=== PATIENT | male | born 1955 | race Two or more races ===

== ENCOUNTER 2024-11-18 09:58 | Emergency (ER) | payer MEDICARE, BC, MEDICAID, SELFPAY ==
[2024-11-18 10:10] VITALS: BP 126/55; PULSE 75; RESP 18; TEMP 37.9; O2SAT 97
--- NOTE | 2024-11-18 10:11 | XR_ITS ---
Examination: PA lateral chest 2 views TECHNIQUE: Upright PA lateral chest 2 views Exam date and time: November 18, 2024 1027 hours Comparison March 14, 2024 INDICATIONS: Fever this morning FINDINGS: Mild basilar bronchitis pattern. Normal heart size No lobar pneumonia IMPRESSION: Mild basilar bronchitis pattern
--- NOTE | 2024-11-18 10:12 | PD.EDRME ---
Rapid Medical Screening Exam [facility] Arrival date/time: 11/18/24 09:58 69-year-old male with kidney transplant 4 months ago presents to the emergency department today for complaints of chills and fever which began last night Chief Complaint: Fever Vital signs: Vital Signs Temperature 100.2 F 11/18/24 10:10 Pulse Rate 75 11/18/24 10:10 Respiratory Rate 18 11/18/24 10:10 Blood Pressure 126/55 L 11/18/24 10:10 Pulse Oximetry (%) 97 11/18/24 10:10 Oxygen Delivery Method Room Air 11/18/24 10:10
[2024-11-18 10:32] LABS: Collection Type, Urine Clean Catch; Squamous Epithelial Cell,Urine 0 /hpf (0-5)
[2024-11-18 10:36] LABS: Bilirubin,Urine Negative (Negative); Blood,Urine Negative (Negative); Clarity,Urine Clear (Clear/Hazy); Color,Urine Lt-Yellow (Lt Yel-Yel); Glucose, Urine 2+ (Negative); Ketones,Urine Negative (Negative); Leukocyte Esterase,Urine Negative (Negative); Nitrite,Urine Negative (Negative); Protein,Urine 2+ (Neg - Trace); RBC,Urine 4 /hpf (0-3); Specific Gravity,Urine 1.017 (1.001-1.035); Urobilinogen,Urine Negative mg/dL (0.0-1.0); WBC,Urine 2 /hpf (0-5)
[2024-11-18 10:42] VITALS: BP 142/66; PULSE 65; RESP 22; TEMP 37.4; O2SAT 97
[2024-11-18 10:56] LABS: Lactate (Lactic Acid) 1.3 mMol/L (0.4-2.0)
[2024-11-18 11:08] LABS: Basophils % (Auto) 3 % (0-2.5); Eosinophils # (Auto) 0.1 Thou/mm3 (0.0-0.5); Eosinophils % (Auto) 4 % (0-10); Hematocrit 37.6 % (41.0-53.0); Hemoglobin 12.7 g/dL (13.5-16.0); Immature Granulocytes % (Auto) 14 % (0-0); Lymphocytes # (Auto) 0.4 Thou/mm3 (1.0-4.8); Lymphocytes % (Auto) 27 % (10-50); Mean Corpuscular HGB Conc 33.8 g/dl (31.0-37.0); Mean Corpuscular Hemoglobin 30.5 pg (25.0-35.0); Mean Corpuscular Volume 90 fL (80-100); Monocytes # (Auto) 0.5 Thou/mm3 (0.0-0.8); Monocytes % (Auto) 37 % (0-12); Neutrophils # (Auto) 0.2 Thou/mm3 (1.8-7.7); Neutrophils % (Auto) 16 % (37-80); Nucleated Red Blood Cell % 0 /100 WBC (0); Platelet Count 201 Thou/mm3 (140-440); RDW Standard Deviation 39.8 fL (35.1-43.9); Red Blood Count 4.16 Miln/mm3 (4.50-5.90)
[2024-11-18 11:15] LABS: White Blood Count 1.4 Thou/mm3 (3.8-10.6)
[2024-11-18 11:29] LABS: Alanine Aminotransferase 16 U/L (10-49); Albumin, Serum 3.8 gm/dL (3.4-4.8); Albumin/Globulin Ratio 1.1 (1.2-2.2); Alkaline Phosphatase 89 U/L (46-116); Anion Gap 7 (7-16); Aspartate Amino Transferase 20 U/L (0-34); BUN/Creatinine Ratio 14 Ratio (12-20); Blood Urea Nitrogen 19 mg/dL (9-23); Calcium 9.1 mg/dL (8.3-10.6); Calcium (Corrected) 9.3 mg/dL (8.5-10.1); Carbon Dioxide 25.3 mMol/L (20.0-31.0); Chloride 99 mMol/L (98-107); Creatinine (Component) 1.4 mg/dL (0.6-1.3); Estimated Creatinine Clearance 1.8 mL/min (>60); Globulin 3.5 gm/dL (2.3-3.5); Glucose 243 mg/dL (74-106); Osmolality,Calculated 272 (275-295); Procalcitonin 0.14 ng/ml (0.0-0.49); Sodium 131 mMol/L (136-145); Total Protein 7.3 gm/dL (5.7-8.2); eGFR 54 See Note
--- NOTE | 2024-11-18 11:50 | XR_ITS ---
Examination: Renal Doppler arterial imaging transplant kidney Exam date and time: November 18, 2024 1332 hours INDICATIONS: Renal transplant July 2024 with fever today TECHNIQUE AND FINDINGS: Multiple grayscale sonographic images transplant kidney Doppler spectral analysis of the transplant kidney including assessment peak systolic flow renal artery calculation resistive indices Transplant kidney 13.3 x 5.8 x 7.1 cm Elevation of peak systolic velocity at the renal artery anastomosis and mid right transplant renal artery Elevated resistive index in the upper and mid kidney Minimal dilatation of the right renal pelvis IMPRESSION: Suspicious for transplant renal artery stenosis Consider MRA without contrast pelvis follow-up
[2024-11-18 12:03] VITALS: BP 142/66; PULSE 62; RESP 21; TEMP 37.3; O2SAT 97
--- NOTE | 2024-11-18 12:38 | PD.EDFEVER ---
ED Fever RME/HPI General Chief Complaint: Fever Stated Complaint: FEVER THIS AM, KIDNEY TRANSPLANT 07/30/24 Arrival date/time: 11/18/24 09:58 RME / HPI RME / HPI Narrative: 11/18/24 09:58 69-year-old male with kidney transplant 4 months ago presents to the emergency department today for complaints of chills and fever which began last night DR. SALAZAR MAIN ED EVALUATION 69 y/o male with Hx of BL kidney failure, Type II DM, and Hypertension and SHx of right kidney transplant BIB daughter presents to ED c/o fever, chills, and weakness x 0200. Patient underwent kidney transplant of the right kidney 4 months ago at [facility] by Dr. Omalley. Patient has a follow-up appointment with Dr. Omalley on 12/02/24. Patient has not yet had an US done, but has weekly bloodwork performed showing that he is sometimes anemic. Daughter states patient's urine is clear. No modifying factors reported. No other concerns or complaints expressed at this time. Related Data Home Medications ?Medication ?Instructions ?Recorded ?Confirmed pravastatin 40 mg tablet 40 mg PO HS 07/16/18 06/11/24 linagliptin 5 mg tablet (Tradjenta) 5 mg PO QDAY 09/07/23 06/11/24 hydralazine 25 mg tablet 50 mg PO TID 10/21/23 06/11/24 losartan 100 mg tablet (Cozaar) 100 mg PO QDAY 10/21/23 06/11/24 tamsulosin 0.4 mg capsule (Flomax) 0.4 mg PO QDAY 10/21/23 06/11/24 vitamin B complex-vitamin C-folic 1 tab PO QDAY 10/21/23 06/11/24 acid 0.8 mg tablet (Milagros-Radha) nifedipine 60 mg tablet,extended 60 mg PO QDAY 01/20/24 06/11/24 release 24 hr sertraline 50 mg tablet 50 mg PO HS 03/15/24 06/11/24 dapagliflozin propanediol 5 mg 5 mg PO QAM 06/11/24 06/11/24 tablet (Farxiga) Previous Rx's ?Medication ?Instructions ?Recorded docusate sodium 100 mg capsule 100 mg PO BID #40 caps 10/25/24 (Colace) hydrocodone 5 mg-acetaminophen 325 1 tab PO Q6H PRN pain (scale score 06/12/24 mg tablet 7-10) #10 tabs Allergies Allergy/AdvReac Type Severity Reaction Status Date / Time [employer] Allergy Verified 11/18/24 10:03 Review of Systems Review of Systems Systems Reviewed: All systems reviewed, normal except as documented Narrative Review of Systems: Gen: + fever, + chills, no weight loss, + weakness EYES: No discharge, no visual changes, no pain HEENT: No ear pain, no congestion, no sore throat PULM: No shortness of breath, no cough, no congestion CV: No chest pain, no dyspnea on exertion, no palpitations GI: No nausea, no vomiting, no diarrhea, no pain, no constipation ABD: + Abdominal surgical scar in RLQ, + Non-tender palpable mass consistent with kidney transplant surgery : No frequency, no urgency,? no dysuria Musc/skel: No joint pain, no back pain Skin: No rash? Psyc: No hallucinations, no depression Heme/Lymph: No easy bleeding or bruising tendencies Neuro: No weakness, no headache Past Medical History Past Medical History CARDIAC: Positive Cardiac Disorders, Peripheral Vascular Disease, Hypercholesterolemia, Valvular Heart Disease, Edema and Hypertension RESPIRATORY: Positive Sleep Apnea GENITOURINARY: Positive Genitourinary Disorders, Renal Disease and Dialysis (Peritoneal dialysis since October 2023) ENDOCRINE: Positive Endocrine Disorders and Diabetes Mellitus Type 2 HEMATOLOGIC: Positive Blood Disorders and Anemia (geta iron infusion twice a month) OTHER HISTORY: Positive Hospitalization (abdominal infection), Organ Transplant (Got a kidney transplant) and Chicken Pox Family History FAMILY HISTORY: Positive Family Cardiac Disorders and Family Surgery Surgical History SURGICAL: Positive Eye Surgery and Organ Transplant (Got a kidney transplant) Social History SMOKING STATUS: Never smoker SUBSTANCE USE: does not use Physical Exam Narrative Physical exam: GEN. APPEARANCE: The patient is alert awake oriented X-3 in no distress, lying down comfortably, does not look ill/toxic.? Patient has good eye contact.? Patient is cooperative. VITALS:? All vitals were reviewed and the pulse ox is 97% on room air which is normal according to my interpretation. HEENT: Normocephalic, atraumatic.? Pupils are equal and reactive.? Oral mucosa is moist. Patent Nares NECK: Supple, nontender, no thyromegaly, no meningismus, no JVD, no step offs CHEST: Symmetrical, atraumatic, and with equal expansion , Nontender on palpation no deformity and no crepitus. CARDIOVASCULAR: Heart regular rhythm no murmur or gallop rub or extra beats. LUNGS: Clear to auscultation bilaterally with symmetrical chest rise.? No laboring tachypnea or wheezing.? No intercostal subcostal retraction.? No rales and no rhonchi. ABDOMEN: Surgical scar to RLQ, palpable mass consistent with renal surgery, nontender. EXTREMITIES: Nontender.? No edema.? No cyanosis.? Patient is able to move all 4 extremities well, with full ROM and good CSM. SKIN: Warm and dry, no jaundice or rashes noted. Course Quality Measures none Orders Category Date Time Status Bedside COVID-19 Antigen Test NOW Care 11/18/24 10:11 Active Bedside Influenza A&B Antigen Test NOW Care 11/18/24 10:11 Completed US renal transplant w dop Stat Exams 11/18/24 11:50 Completed XR chest 2V Stat Exams 11/18/24 10:11 Completed Blood Culture (Lab) Stat Lab 11/18/24 10:40 Received CBC Stat Lab 11/18/24 10:45 Completed Comprehensive Metabolic Panel Stat Lab 11/18/24 10:45 Completed Cytomegalovirus DNA, Qn, PCR* Stat Lab 11/18/24 Ordered Lactate (Lactic Acid) Stat Lab 11/18/24 10:45 Completed Procalcitonin Stat Lab 11/18/24 10:45 Completed Urinalysis Stat Lab 11/18/24 10:23 Completed Urine Culture Stat Lab 11/18/24 10:23 Received Filgrastim Inj (Zarxio) [Zarxio Inj] Med 11/18/24 15:13 Discontinued 480 mcg SC X1 ONE cefTRIAXone [Rocephin] 2 gm Med 11/18/24 11:49 Discontinued SODIUM CHLORIDE 0.9% (Popper) [Ns 0.9% (P)] 50 ml IV X1 Vital Signs Vital signs: Vital Signs Temperature 100.2 F 11/18/24 10:10 Pulse Rate 75 11/18/24 10:10 Respiratory Rate 18 11/18/24 10:10 Blood Pressure 126/55 L 11/18/24 10:10 Pulse Oximetry (%) 97 11/18/24 10:10 Oxygen Delivery Method Room Air 11/18/24 10:10 Fever MDM Narrative MDM Narrative:: I, Ernestina Millard am scribing for and in the presence of Dr. Pee Salazar. 69 y/o male with Hx of BL kidney failure, Type II DM, and Hypertension and SHx of right kidney transplant BIB daughter presents to ED c/o fever, chills, and? weakness x 0200. Patient was tested for COVID-19 and Influenza. Both results were negative. Chest x-ray shows Mild basilar bronchitis pattern. Renal US shows possible transplant renal artery stenosis. Physical exam findings show surgical scar in the right lower quadrant of the abdomen, and a nontender palpable mass consistent with renal transplant surgery. Based on exam findings, lab and radiology results, and patient's SxS, the diagnosis at this time is consistent with leukopenia, renal artery stenosis, elevated temperature, renal transplant, and on immunosuppresant drugs. Patient will be prescribed Ceftriaxone Sodium and Filgrastim. Patient is to be discharge and advised to follow-up with Dr. Omalley during upcoming appointment on 12/02/2024. Patient data External records reviewed:: [facility] previous records (Reviewed prior admission notes from 03/14/24-03/17/24. Patient was admitted for mechanical complication of intraperitoneal dialysis catheter) Clinical information provided by:: patient and family (daughter) Social determinants that could affect healthcare access:: none Patient has the following chronic illnesses:: Type II DM, Peripheral vascular disease, hypercholesterolemia, valvular heart disease, edema, hypertension, renal disease and dialysis. How is presenting disease/condition affected by chronic disease/condition?: exacerbated by Evaluation data The following diagnostics were reviewed and interpreted by me:: lab results and radiology exam(s) Lab and/or radiology exams considered but not ordered:: None Interpretation Summary: Patient: RHYS VELASQUEZ Record#: [id number] Birthdate: 1955 Age/Sex: 69 / M Location: [facility] Attending Dr: Ordering Physician: Betsy HAMILTON)Scott NP Date of Service: 11/18/24 Procedure(s): XR chest 2V Accession Number(s): [id number] cc: Betsy HAMILTON),Scott SAINZ; Jonatan Villeda MD; Kareen Cormier MD~ Examination: PA lateral chest 2 views TECHNIQUE: Upright PA lateral chest 2 views Exam date and time: November 18, 2024 1027 hours Comparison March 14, 2024 INDICATIONS: Fever this morning FINDINGS: Mild basilar bronchitis pattern. Normal heart size No lobar pneumonia IMPRESSION: Mild basilar bronchitis pattern Dictated By: Jonatan Villeda MD Signed By: <Electronically signed by Jonatan Villeda MD in OV> 11/18/24 1058 Patient: RHYS VELASQUEZ. Record#: [id number] Birthdate: 1955 Age/Sex: 69 / M Location: [facility] Attending Dr: Ordering Physician: Pee Salazar MD Date of Service: 11/18/24 Procedure(s): US renal transplant w dop Accession Number(s): [id number] cc: Pee Salazar MD; Jonatan Villeda MD; Kareen Cormier MD~ Examination: Renal Doppler arterial imaging transplant kidney Exam date and time: November 18, 2024 1332 hours INDICATIONS: Renal transplant July 2024 with fever today TECHNIQUE AND FINDINGS: Multiple grayscale sonographic images transplant kidney Doppler spectral analysis of the transplant kidney including assessment peak systolic flow renal artery calculation resistive indices Transplant kidney 13.3 x 5.8 x 7.1 cm Elevation of peak systolic velocity at the renal artery anastomosis and mid right transplant renal artery Elevated resistive index in the upper and mid kidney Minimal dilatation of the right renal pelvis IMPRESSION: Suspicious for transplant renal artery stenosis Consider MRA without contrast pelvis follow-up Dictated By: Jonatan Villeda MD Signed By: <Electronically signed by Jonatan Villeda MD in OV> 11/18/24 1437 Medications / Prescriptions Medications or Prescriptions considered but not ordered:: None Medication administrations:: Medication Administration History Discontinued Medications Filgrastim (Filgrastim Inj (Zarxio) 480 Mcg/0.8 Ml Syringe) 480 mcg SC X1 ONE Stop: 11/18/24 15:14 Ceftriaxone Sodium 2 gm/ (Sodium Chloride) 50 mls @ 100 mls/hr IV X1 ONE Stop: 11/18/24 12:18 Last Infusion: 11/18/24 13:33 Dose: Infused Documented By: Admin: 11/18/24 12:59 Dose: 100 mls/hr Documented By: DB See above if any. Consultations Consultation(s) initiated? (list below): No Diagnosis Fever Differential Diagnosis: fever of unknown origin, viral infection, sepsis and other (Leukopenia vs renal transplant) Most likely diagnosis given after review of the tests above:: Leukopenia, renal artery stenosis, elevated temperature, renal transplant, and on immunosuppressant drugs Admission Indicated Admission indicated?: not indicated Admission Request Was there a request for admission?: No Disposition Plan Disposition Plan: Discharge Discharge Attestation Discharge Attestation: The patient and all family members were given an opportunity to ask questions and understood the discharge instructions. Discharge instructions specifically effects, indications for sooner follow up or return to the emergency department, and the expected course of current diagnosis. Patient condition: Stable Discharge Plan Plan Patient Disposition: HOME (Self Care) Prescriptions/Referrals Prescriptions/Med Rec: No Action pravastatin 40 mg Tablet 40 mg PO HS hydralazine 25 mg Tablet 50 mg PO TID tamsulosin [Flomax] 0.4 mg Capsule 0.4 mg PO QDAY Milagros-Radha 0.8 mg Tablet 1 tab PO QDAY losartan [Cozaar] 100 mg Tablet 100 mg PO QDAY nifedipine 60 mg Tablet Extended Release 24hr 60 mg PO QDAY sertraline 50 mg tablet 50 mg PO HS Patient Comments: TAKE 1 TABLET BY MOUTH AT BEDTIME Tradjenta 5 mg Tablet 5 mg PO QDAY dapagliflozin propanediol [Farxiga] 5 mg Tablet 5 mg PO QAM docusate sodium [Colace] 100 mg capsule 100 mg PO BID Qty: 40 0RF hydrocodone-acetaminophen 5-325 mg tablet 1 tab PO Q6H MDD 4 PRN (Reason: pain (scale score 7-10)) Qty: 10 0RF Referrals: Genia,Nirupama, MD [Primary Care Provider] - In 1 week Problem List Clinical Impression: Leukocytopenia, Renal transplant, status post, Renal artery stenosis, Elevated temperature, Long-term use of immunosuppressant medication Patient/Caregiver Discharge Instructions Additional Instructions: Follow up with your renal transplant program within 2-3 days for reassessment. Return for any new or worsening symptoms. Print Language: Icelandic Stand Alone Forms: Deisi Award Info., Patient Portal Info Letter
[2024-11-18] MEDS: cefTRIAXone 2 GM in SODIUM CHLORIDE 0.9% (Popper) 50 ML IV (12:59)
[2024-11-18 14:00] VITALS: BP 142/82; PULSE 67; RESP 22; TEMP 37.2; O2SAT 97
[2024-11-18] MEDS: FILGRASTIM INJ (ZARXIO) 480 MCG/0.8 ML SYRINGE SC (15:51)
[2024-11-18 15:57] VITALS: PULSE 67; RESP 16; O2SAT 95
== END 2024-11-18 15:57 | disposition home or self-care (01) ==
PROVIDERS: Nurse Practitioner Primary Care; Emergency Provider Family Medicine; PCP Internal Medicine
DX: Z48.22 Encounter for aftercare following kidney transplant (principal); D72.819 Decreased white blood cell count, unspecified; I70.1 Atherosclerosis of renal artery; R50.9 Fever, unspecified
CPT/HCPCS: 36415; 71046; 76776; 80053; 81001; 83605; 84145; 85025; 87040; 87086; 87400; 87497; 87811; 96365; 96372; 99284; J0696; J7050; Q5101

== ENCOUNTER → 2024-12-16 | Outpatient (CLI) | payer MEDICARE, BC, MEDICAID, SELFPAY ==
[2024-12-16 08:10] LABS: Collection Type, Urine Clean Catch
[2024-12-16 08:39] LABS: Basophils % (Auto) 1 % (0-2.5); Eosinophils # (Auto) 0.2 Thou/mm3 (0.0-0.5); Eosinophils % (Auto) 3 % (0-10); Hematocrit 37.7 % (41.0-53.0); Immature Granulocytes % (Auto) 2 % (0-0); Immature Granulocytes Auto 0.12 Thou/mm3 (0.00-0.00); Lymphocytes % (Auto) 16 % (10-50); Mean Corpuscular HGB Conc 34.5 g/dl (31.0-37.0); Mean Corpuscular Hemoglobin 30.2 pg (25.0-35.0); Mean Corpuscular Volume 88 fL (80-100); Monocytes # (Auto) 0.9 Thou/mm3 (0.0-0.8); Monocytes % (Auto) 15 % (0-12); Neutrophils # (Auto) 3.7 Thou/mm3 (1.8-7.7); Neutrophils % (Auto) 62 % (37-80); Nucleated Red Blood Cell % 0 /100 WBC (0); Platelet Count 218 Thou/mm3 (140-440); RDW Standard Deviation 40.4 fL (35.1-43.9); White Blood Count 5.9 Thou/mm3 (3.8-10.6)
[2024-12-16 08:47] LABS: Glucose Estimated Average 214 mg/dL (80-131); Hemoglobin A1C 9.1 % Hgb (4.8-6.0)
[2024-12-16 08:48] LABS: PSA Medicare Annual Scrn 0.51 ng/mL (0-4.00)
[2024-12-16 08:49] LABS: Bilirubin,Urine Negative (Negative); Blood,Urine Negative (Negative); Clarity,Urine Clear (Clear/Hazy); Color,Urine Lt-Yellow (Lt Yel-Yel); Glucose, Urine 1+ (Negative); Ketones,Urine Negative (Negative); Leukocyte Esterase,Urine Negative (Negative); Nitrite,Urine Negative (Negative); Protein,Urine Trace (Neg - Trace); RBC,Urine 3 /hpf (0-3); Specific Gravity,Urine 1.014 (1.001-1.035); Squamous Epithelial Cell,Urine < 1 /hpf (0-5); Urobilinogen,Urine Negative mg/dL (0.0-1.0); WBC,Urine < 1 /hpf (0-5)
[2024-12-16 08:57] LABS: Alanine Aminotransferase 14 U/L (10-49); Albumin, Serum 3.9 gm/dL (3.4-4.8); Albumin/Globulin Ratio 1.1 (1.2-2.2); Alkaline Phosphatase 86 U/L (46-116); Anion Gap 6 (7-16); Aspartate Amino Transferase 12 U/L (0-34); BUN/Creatinine Ratio 22 Ratio (12-20); Bilirubin,Total 0.6 mg/dL (0.3-1.2); Blood Urea Nitrogen 26 mg/dL (9-23); Calcium 9.4 mg/dL (8.3-10.6); Calcium (Corrected) 9.5 mg/dL (8.5-10.1); Carbon Dioxide 28.6 mMol/L (20.0-31.0); Cardiac Risk Estimate 3.6 RATIO (4.0-6.7); Chloride 105 mMol/L (98-107); Cholesterol 137 mg/dL (132-200); Creatinine (Component) 1.2 mg/dL (0.6-1.3); Globulin 3.7 gm/dL (2.3-3.5); Glucose 116 mg/dL (74-106); HDL Cholesterol 38 mg/dL (40-60); LDL Cholesterol,Calculated 84 mg/dL (0-130); Osmolality,Calculated 285 (275-295); Sodium 140 mMol/L (136-145); Thyroid Stimulating Hormone 3.38 uIU/mL (0.55-4.78); Total Protein 7.6 gm/dL (5.7-8.2); Triglycerides 76 mg/dL (30-150); Uric Acid 5.8 mg/dL (3.7-9.2); eGFR > 60 See Note
[2024-12-16 09:02] LABS: Parathyroid Hormone Intact 57.9 pg/ml (18.5-88.0)
[2024-12-16 09:14] LABS: Vitamin B12 1069 pg/mL (211-911); Vitamin D 25 Hydroxy Total 29.6 ng/mL (7.3-40.2)
[2024-12-16 09:15] LABS: Creatinine MALB Rnd Ur 68 mg/dL (30-125); Microalbumin Creat Ratio 272 mg/gCrea (<30); Microalbumin, Random Urine 185 mg/L (0-300)
== END | disposition home or self-care (01) ==
PROVIDERS: PCP Internal Medicine; Referring Provider Internal Medicine; Visit Provider Internal Medicine
DX: I12.9 Hypertensive chronic kidney disease with stage 1 through stage 4 chronic kidney disease, or unspecified chronic kidney disease (principal); E11.22 Type 2 diabetes mellitus with diabetic chronic kidney disease; N18.30 Chronic kidney disease, stage 3 unspecified; E78.5 Hyperlipidemia, unspecified; Z94.0 Kidney transplant status; E55.9 Vitamin D deficiency, unspecified; D51.9 Vitamin B12 deficiency anemia, unspecified; Z12.5 Encounter for screening for malignant neoplasm of prostate
CPT/HCPCS: 36415; 80053; 80061; 81001; 82043; 82306; 82570; 82607; 83036; 83970; 84153; 84443; 84550; 85025; G0103

== ENCOUNTER → 2025-04-27 | Outpatient (CLI) | payer MEDICARE, BC, MEDICAID, SELFPAY ==
[2025-04-27 07:53] LABS: Collection Type, Urine Clean Catch; Squamous Epithelial Cell,Urine 0 /hpf (0-5)
[2025-04-27 08:59] LABS: Glucose Estimated Average 203 mg/dL (80-131); Hemoglobin A1C 8.7 % Hgb (4.8-6.0)
[2025-04-27 09:07] LABS: Bilirubin,Urine Negative (Negative); Blood,Urine Negative (Negative); Clarity,Urine Clear (Clear/Hazy); Color,Urine Lt-Yellow (Lt Yel-Yel); Glucose, Urine 4+ (Negative); Ketones,Urine Negative (Negative); Leukocyte Esterase,Urine Negative (Negative); Nitrite,Urine Negative (Negative); PH,Urine 6.0 (5.0-7.0); Protein,Urine Trace (Neg - Trace); RBC,Urine 3 /hpf (0-3); Specific Gravity,Urine 1.021 (1.001-1.035); Urobilinogen,Urine Negative mg/dL (0.0-1.0); WBC,Urine 1 /hpf (0-5)
[2025-04-27 09:31] LABS: Albumin, Serum 3.7 gm/dL (3.4-4.8); Anion Gap 13 (7-16); BUN/Creatinine Ratio 26 Ratio (12-20); Blood Urea Nitrogen 34 mg/dL (9-23); Calcium 9.6 mg/dL (8.3-10.6); Calcium (Corrected) 9.8 mg/dL (8.5-10.1); Carbon Dioxide 23.1 mMol/L (20.0-31.0); Chloride 103 mMol/L (98-107); Creatinine (Component) 1.3 mg/dL (0.6-1.3); Glucose 168 mg/dL (74-106); Osmolality,Calculated 289 (275-295); Phosphorous 3.4 mg/dL (2.4-5.1); Potassium 4.4 mMol/L (3.4-5.1); Sodium 139 mMol/L (136-145); eGFR 59 See Note
== END | disposition home or self-care (01) ==
LOC: COPL 06:50
PROVIDERS: PCP Internal Medicine; Referring Provider Internal Medicine; Visit Provider Internal Medicine
DX: E11.22 Type 2 diabetes mellitus with diabetic chronic kidney disease (principal); N18.30 Chronic kidney disease, stage 3 unspecified
CPT/HCPCS: 36415; 80069; 81001; 83036

== ENCOUNTER → 2025-05-26 | Outpatient (CLI) | payer MEDICARE, BC, MEDICAID, SELFPAY ==
--- NOTE | 2025-05-26 13:00 | XR_ITS ---
Examination: CT soft tissue neck, without contrast. 2-D sagittal reconstructions. 2-D coronal reconstructions. 3-D reconstructions. Date and time of exam: May 26, 2025, 1284 hours INDICATIONS: Swelling on the right side of the face right side of the mandible beginning 1 month ago CTDI: vol (mGy): 13.8 DLP: (mGycm): 112 Technique: Multiple 1.25 mm axial sections of the soft tissue neck without intravenous contrast have been obtained. 2-D sagittal and coronal reconstructions have been obtained. 3-D reconstructions have been obtained. Low dose protocols were performed. One or more of the following dose reduction techniques were used; automated exposure control, adjustment of the mA and/or KV according to patient size, use of iterative reconstruction technique. Findings: Soft tissue neck without intravenous contrast symmetrical nasopharynx oropharynx Symmetrical parotid glands and submandibular glands No pathologic carotid triangle lymphadenopathy The larynx appears normal Normal epiglottis Thyroid lobes are not enlarged Adequate alignment cervical vertebral bodies IMPRESSION: No soft tissue neck mass noted on this noncontrast study, recommend ultrasound soft tissue follow-up at the area of concern
[2025-05-26 15:07] LABS: Basophils # (Auto) 0.0 Thou/mm3 (0.0-0.2); Basophils % (Auto) 0 % (0-2.5); Eosinophils # (Auto) 0.1 Thou/mm3 (0.0-0.5); Eosinophils % (Auto) 1 % (0-10); Hematocrit 43.0 % (41.0-53.0); Hemoglobin 14.3 g/dL (13.5-16.0); Immature Granulocytes Auto 0.29 Thou/mm3 (0.00-0.00); Lymphocytes # (Auto) 1.0 Thou/mm3 (1.0-4.8); Lymphocytes % (Auto) 13 % (10-50); Mean Corpuscular HGB Conc 33.3 g/dl (31.0-37.0); Mean Corpuscular Hemoglobin 31.4 pg (25.0-35.0); Mean Corpuscular Volume 94 fL (80-100); Monocytes # (Auto) 0.6 Thou/mm3 (0.0-0.8); Monocytes % (Auto) 7 % (0-12); Neutrophils # (Auto) 6.0 Thou/mm3 (1.8-7.7); Neutrophils % (Auto) 75 % (37-80); Nucleated Red Blood Cell # 0.00 Thou/mm3 (0.00-0.00); Nucleated Red Blood Cell % 0 /100 WBC (0); Platelet Count 201 Thou/mm3 (140-440); RDW Standard Deviation 41.7 fL (35.1-43.9); Red Blood Count 4.56 Miln/mm3 (4.50-5.90); White Blood Count 7.9 Thou/mm3 (3.8-10.6)
[2025-05-26 16:09] LABS: Path Review Blood Smear Sent to Pathologist
== END | disposition home or self-care (01) ==
LOC: CCTX 12:45
PROVIDERS: PCP Internal Medicine; Referring Provider Internal Medicine; Visit Provider Internal Medicine
DX: R59.0 Localized enlarged lymph nodes (principal); N18.30 Chronic kidney disease, stage 3 unspecified
CPT/HCPCS: 36415; 70490; 85025

== ENCOUNTER → 2025-07-30 | Outpatient (CLI) | payer MEDICARE, BC, MEDICAID, SELFPAY ==
[2025-07-30 08:32] LABS: Basophils # (Auto) 0.0 Thou/mm3 (0.0-0.2); Basophils % (Auto) 1 % (0-2.5); Eosinophils # (Auto) 0.1 Thou/mm3 (0.0-0.5); Eosinophils % (Auto) 1 % (0-10); Hematocrit 41.7 % (41.0-53.0); Hemoglobin 13.7 g/dL (13.5-16.0); Immature Granulocytes Auto 0.14 Thou/mm3 (0.00-0.00); Lymphocytes # (Auto) 1.2 Thou/mm3 (1.0-4.8); Lymphocytes % (Auto) 14 % (10-50); Mean Corpuscular HGB Conc 32.9 g/dl (31.0-37.0); Mean Corpuscular Hemoglobin 30.7 pg (25.0-35.0); Mean Corpuscular Volume 94 fL (80-100); Monocytes # (Auto) 0.7 Thou/mm3 (0.0-0.8); Monocytes % (Auto) 8 % (0-12); Neutrophils # (Auto) 6.6 Thou/mm3 (1.8-7.7); Neutrophils % (Auto) 75 % (37-80); Nucleated Red Blood Cell # 0.00 Thou/mm3 (0.00-0.00); Nucleated Red Blood Cell % 0 /100 WBC (0); Platelet Count 261 Thou/mm3 (140-440); RDW Standard Deviation 42.8 fL (35.1-43.9); Red Blood Count 4.46 Miln/mm3 (4.50-5.90); White Blood Count 8.7 Thou/mm3 (3.8-10.6)
[2025-07-30 08:40] LABS: Anion Gap 8 (7-16); BUN/Creatinine Ratio 23 Ratio (12-20); Blood Urea Nitrogen 27 mg/dL (9-23); Calcium 9.6 mg/dL (8.3-10.6); Carbon Dioxide 28.5 mMol/L (20.0-31.0); Chloride 102 mMol/L (98-107); Creatinine (Component) 1.2 mg/dL (0.6-1.3); Glucose 125 mg/dL (74-106); Osmolality,Calculated 281 (275-295); Potassium 4.1 mMol/L (3.4-5.1); Sodium 138 mMol/L (136-145); eGFR > 60 See Note
== END | disposition home or self-care (01) ==
LOC: COPL 07:29
PROVIDERS: PCP Internal Medicine; Referring Provider Ophthalmology; Visit Provider Ophthalmology
DX: I10 Essential (primary) hypertension (principal)
CPT/HCPCS: 36415; 80048; 85025